=== PATIENT | male | born 1980 | race Two or more races ===

== ENCOUNTER 2016-10-08 11:19 | Inpatient (IN) | payer MEDICAID ==
[~2016-10-08] VITALS: Ht 177.8 cm; Wt 114.3 kg
[2016-10-08] MEDS ORDERED: SODIUM CHLORIDE 0.9% 1,000 ML IV ONE (11:49)
[2016-10-08] MEDS ORDERED: InsuLIN REG 1unit/0.01ml Soln (100units/ml) IV ONE (12:00)
[2016-10-08 12:12] LABS: Base Excess -0.8 mmol/L (-2.0-2.0); Blood 02Sat 92.5 % (96-100); Blood COHb 0.3 % (0.5-1.5); Blood MetHb 0.3 % (0.0-1.5); HCO3 22.9 mmol/L (22-26.0); HHb 7.5 % (0.0-5.0); MODE ROOM AIR; O2Hb 91.9 % (94.0-97.0); PCO2 35.5 mmHg (35.0-45.0); PCO2(T) 35.5 mmHg (35.0-45.0); PO2 66.5 mmHg (80.0-100.0); PO2(T) 66.5 mmHg (80.0-100.0); Sample Type Arterial; pH 7.427 (7.350-7.450)
[2016-10-08 12:46] LABS: Urine Bilirubin Negative (Negative); Urine Blood Negative /uL (Negative); Urine Color Yellow (Yellow); Urine Glucose 4+ mg/dL (Normal); Urine Ketone 1+ (Negative); Urine Nitrite Negative (Negative); Urine RBC 2 /hpf (0 - 3); Urine Urobilinogen Normal (Negative)
[2016-10-08] MEDS ORDERED: ONDANSETRON HCL 4 MG/2 ML VIAL IV ONE (13:15)
[2016-10-08] MEDS ORDERED: MORPHINE SULFATE 4 MG/ML SYRG IV ONE (13:15)
[2016-10-08 13:24] LABS: Basophils # (auto) 0 uL; Basophils % (auto) 0.3 % (0.0-2.0); Eosinophils # (auto) 0.2 uL; Eosinophils % (auto) 2.4 % (0.0-7.0); Hematocrit 50.2 % (41.0-53.0); Hemoglobin 17.1 g/dL (13.5-17.5); Lymphocytes # (auto) 1.7 uL; Lymphocytes % (auto) 21.9 % (10.0-50.0); Mean Corpuscular Hemoglobin 28.7 pg (28.0-32.0); Mean Corpuscular Hgb Conc. 34.1 g/dL (32.0-36.0); Mean Corpuscular Volume 84.1 fL (80.0-100.0); Monocytes # (auto) 0.5 uL; Monocytes % (auto) 6.7 % (0.0-12.0); Neutrophils # (auto) 5.3 uL; Neutrophils % (auto) 68.7 % (37.0-80.0); Platelet Count (auto) 195 10^3/uL (140-450); Red Cell Distribution Width 12.8 % (11.6-16.0); White Blood Cell 7.7 10^3/uL (4.4-10.8)
[2016-10-08 13:44] LABS: Albumin 4.4 g/dL (3.4-5.0); BUN/Creatinine Ratio 19.2; Bilirubin, Total 2.1 mg/dL (0.2-1.0); Calcium 9.3 mg/dL (8.5-10.1); Potassium 4.2 mmol/L (3.5-5.1); Total Protein 8.6 g/dL (6.4-8.2)
[2016-10-08] MEDS ORDERED: POTASSIUM CHLORIDE 8 MEQ TAB PO ONE (14:30)
[2016-10-08] MEDS ORDERED: metFORMIN HYDROCHLORIDE 500 MG TAB PO ONE (14:30)
[2016-10-08] MEDS ORDERED: HCTZ 25 MG TAB PO ONE (14:30)
[2016-10-08] MEDS ORDERED: ACETAMINOPHEN 325 MG TAB PO PRN (14:45)
[2016-10-08] MEDS ORDERED: DOCUSATE SOD 100 MG CAP PO PRN (14:45)
[2016-10-08] MEDS ORDERED: MORPHINE SULF INJ 2 MG/ML SYRINGE 1ML IV PRN (14:45)
[2016-10-08] MEDS ORDERED: DEXTROSE (50%) 50ML SYRG IV PRN (14:45)
[2016-10-08] MEDS ORDERED: InsuLIN REG 1unit/0.01ml Soln (100units/ml) SC ONE (14:45)
[2016-10-08] MEDS ORDERED: ONDANSETRON HCL 4 MG/2 ML VIAL IV PRN (14:45)
[2016-10-08] MEDS ORDERED: NITROGLYCERIN 0.4 MG SL TAB SL PRN (14:45)
[2016-10-08] MEDS: SODIUM CHLORIDE 0.9% 1,000 ML IV SCH (15:16)
[2016-10-08] MEDS: MULTIPLE VITAMIN TAB PO SCH (15:16)
[2016-10-08] MEDS: FAMOTIDINE 20 MG TAB PO SCH ×2 (15:16→21:13)
[2016-10-08 16:02] VITALS: BP 143/96
[2016-10-08] MEDS ORDERED: INFLUENZA QUAD 2016-2017 0.5 ML SYRG IM ONE (16:30)
[2016-10-08 17:00] VITALS: BP 143/96
[2016-10-08] MEDS: MORPHINE SULF INJ 2 MG/ML SYRINGE 1ML IV PRN ×2 (17:08→21:13)
[2016-10-08] MEDS: ACCU-CHEK COMFORT CURVE STRIP VI SCH ×2 (17:10→22:00)
[2016-10-08] MEDS: metFORMIN HYDROCHLORIDE 500 MG TAB PO SCH (17:35)
[2016-10-08] MEDS: InsuLIN REG 1unit/0.01ml Soln (100units/ml) SC SCH ×2 (17:36→22:00)
[2016-10-08] MEDS: TEMAZEPAM 15 MG CAP PO PRN (21:13)
[2016-10-08 23:09] VITALS: BP 145/74
[2016-10-09 05:48] VITALS: BP 138/80
[2016-10-09 05:58] LABS: Basophils # (auto) 0 uL; Basophils % (auto) 0.4 % (0.0-2.0); Eosinophils # (auto) 0.2 uL; Eosinophils % (auto) 3.7 % (0.0-7.0); Hematocrit 41.9 % (41.0-53.0); Hemoglobin 14.3 g/dL (13.5-17.5); Lymphocytes # (auto) 1.6 uL; Lymphocytes % (auto) 25.7 % (10.0-50.0); Mean Corpuscular Hemoglobin 28.7 pg (28.0-32.0); Mean Corpuscular Hgb Conc. 34.2 g/dL (32.0-36.0); Mean Platelet Volume 8.7 fL (7.4-10.4); Monocytes # (auto) 0.5 uL; Monocytes % (auto) 7.7 % (0.0-12.0); Neutrophils # (auto) 3.9 uL; Neutrophils % (auto) 62.5 % (37.0-80.0); Platelet Count (auto) 189 10^3/uL (140-450); Red Cell Distribution Width 12.8 % (11.6-16.0); White Blood Cell 6.3 10^3/uL (4.4-10.8)
[2016-10-09] MEDS: InsuLIN REG 1unit/0.01ml Soln (100units/ml) SC SCH ×4 (06:00→21:26)
[2016-10-09] MEDS: MORPHINE SULF INJ 2 MG/ML SYRINGE 1ML IV PRN ×4 (06:15→19:50)
[2016-10-09 06:16] LABS: Albumin 3.2 g/dL (3.4-5.0); BUN/Creatinine Ratio 12.6; Calcium 7.9 mg/dL (8.5-10.1); Potassium 4.2 mmol/L (3.5-5.1)
[2016-10-09 06:25] LABS: Bilirubin, Total 1.4 mg/dL (0.2-1.0); Total Protein 6.9 g/dL (6.4-8.2)
[2016-10-09] MEDS: metFORMIN HYDROCHLORIDE 500 MG TAB PO SCH ×2 (06:27→18:33)
[2016-10-09] MEDS: SODIUM CHLORIDE 0.9% 1,000 ML IV SCH ×3 (07:08→22:14)
[2016-10-09] MEDS: ACCU-CHEK COMFORT CURVE STRIP VI SCH ×4 (07:08→21:26)
[2016-10-09 08:00] VITALS: BP 151/84
[2016-10-09 09:00] VITALS: BP 143/74
[2016-10-09] MEDS: FAMOTIDINE 20 MG TAB PO SCH ×2 (10:28→21:25)
[2016-10-09] MEDS: MULTIPLE VITAMIN TAB PO SCH (10:28)
[2016-10-09] MEDS: POTASSIUM CHLORIDE 8 MEQ TAB PO SCH (10:28)
[2016-10-09] MEDS: HCTZ 25 MG TAB PO SCH (10:28)
[2016-10-09] MEDS: HYDROcodone-ACET 5/325MG TAB PO PRN (10:35)
[2016-10-09 13:00] VITALS: BP 134/87
[2016-10-09 13:51] LABS: Amylase 39 U/L (25-115)
[2016-10-09 17:00] VITALS: BP 137/72
[2016-10-09] MEDS: glipiZIDE 5 MG TAB PO SCH (18:33)
[2016-10-09] MEDS: TEMAZEPAM 15 MG CAP PO PRN (21:25)
[2016-10-09 22:00] VITALS: BP 146/84
[2016-10-10 05:00] VITALS: BP 156/80
[2016-10-10] MEDS: ACCU-CHEK COMFORT CURVE STRIP VI SCH ×4 (06:16→21:50)
[2016-10-10] MEDS: SODIUM CHLORIDE 0.9% 1,000 ML IV SCH ×2 (06:16→15:30)
[2016-10-10] MEDS: InsuLIN REG 1unit/0.01ml Soln (100units/ml) SC SCH ×4 (06:16→21:51)
[2016-10-10] MEDS: MORPHINE SULF INJ 2 MG/ML SYRINGE 1ML IV PRN ×4 (06:17→20:46)
[2016-10-10] MEDS: metFORMIN HYDROCHLORIDE 500 MG TAB PO SCH ×2 (06:17→17:58)
[2016-10-10] MEDS: glipiZIDE 5 MG TAB PO SCH ×2 (06:17→17:58)
[2016-10-10 07:44] VITALS: BP 144/85
[2016-10-10 08:00] VITALS: BP 144/85
[2016-10-10] MEDS: MULTIPLE VITAMIN TAB PO SCH (09:31)
[2016-10-10] MEDS: POTASSIUM CHLORIDE 8 MEQ TAB PO SCH (09:31)
[2016-10-10] MEDS: HCTZ 25 MG TAB PO SCH (09:31)
[2016-10-10] MEDS: FAMOTIDINE 20 MG TAB PO SCH ×2 (09:32→21:50)
[2016-10-10 12:00] VITALS: BP 127/82
[2016-10-10 14:55] LABS: Basophils # (auto) 0 uL; Basophils % (auto) 0.4 % (0.0-2.0); Eosinophils # (auto) 0.2 uL; Eosinophils % (auto) 3.9 % (0.0-7.0); Hematocrit 44.4 % (41.0-53.0); Hemoglobin 15.5 g/dL (13.5-17.5); Lymphocytes # (auto) 1.5 uL; Lymphocytes % (auto) 26.4 % (10.0-50.0); Mean Corpuscular Hemoglobin 29.2 pg (28.0-32.0); Mean Corpuscular Hgb Conc. 34.9 g/dL (32.0-36.0); Mean Corpuscular Volume 83.6 fL (80.0-100.0); Mean Platelet Volume 8.9 fL (7.4-10.4); Monocytes # (auto) 0.4 uL; Monocytes % (auto) 6.8 % (0.0-12.0); Neutrophils # (auto) 3.5 uL; Neutrophils % (auto) 62.5 % (37.0-80.0); Platelet Count (auto) 204 10^3/uL (140-450); White Blood Cell 5.6 10^3/uL (4.4-10.8)
[2016-10-10 15:22] LABS: BUN/Creatinine Ratio 11.3; Calcium 8.6 mg/dL (8.5-10.1); Potassium 3.9 mmol/L (3.5-5.1)
[2016-10-10 16:15] LABS: Albumin 3.3 g/dL (3.4-5.0); Bilirubin, Direct 0.2 mg/dL (0-0.2); Bilirubin, Total 1.3 mg/dL (0.2-1.0)
[2016-10-10 16:46] VITALS: BP 141/91
[2016-10-10] MEDS: TEMAZEPAM 15 MG CAP PO PRN (21:56)
[2016-10-10 22:00] VITALS: BP 136/86
[2016-10-10] MEDS ORDERED: INSULIN DETEMIR(LEVEMIR) 1unit/0.01ml Soln (100units/ml) SC SCH (22:00)
[2016-10-11] MEDS: SODIUM CHLORIDE 0.9% 1,000 ML IV SCH ×3 (02:06→14:34)
[2016-10-11] MEDS: MORPHINE SULF INJ 2 MG/ML SYRINGE 1ML IV PRN ×2 (02:12→06:35)
[2016-10-11 05:00] VITALS: BP 125/82
[2016-10-11 06:31] LABS: Basophils # (auto) 0 uL; Basophils % (auto) 0.4 % (0.0-2.0); Eosinophils # (auto) 0.3 uL; Eosinophils % (auto) 4.9 % (0.0-7.0); Hematocrit 43.8 % (41.0-53.0); Hemoglobin 15.1 g/dL (13.5-17.5); Lymphocytes # (auto) 1.9 uL; Lymphocytes % (auto) 32.6 % (10.0-50.0); Mean Corpuscular Hemoglobin 28.8 pg (28.0-32.0); Mean Corpuscular Hgb Conc. 34.4 g/dL (32.0-36.0); Mean Corpuscular Volume 83.9 fL (80.0-100.0); Mean Platelet Volume 9.4 fL (7.4-10.4); Monocytes # (auto) 0.5 uL; Monocytes % (auto) 8.4 % (0.0-12.0); Neutrophils # (auto) 3.1 uL; Neutrophils % (auto) 53.7 % (37.0-80.0); Platelet Count (auto) 199 10^3/uL (140-450); Red Cell Distribution Width 13.4 % (11.6-16.0); White Blood Cell 5.8 10^3/uL (4.4-10.8)
[2016-10-11] MEDS: glipiZIDE 5 MG TAB PO SCH (06:34)
[2016-10-11] MEDS: metFORMIN HYDROCHLORIDE 500 MG TAB PO SCH ×2 (06:34→17:36)
[2016-10-11] MEDS: ACCU-CHEK COMFORT CURVE STRIP VI SCH ×4 (06:35→21:27)
[2016-10-11] MEDS: InsuLIN REG 1unit/0.01ml Soln (100units/ml) SC SCH ×4 (06:35→21:28)
[2016-10-11 06:49] LABS: Calcium 8.4 mg/dL (8.5-10.1); Potassium 3.9 mmol/L (3.5-5.1)
[2016-10-11 06:52] LABS: BUN/Creatinine Ratio 10.9
[2016-10-11 09:30] VITALS: BP 131/74
[2016-10-11] MEDS: FAMOTIDINE 20 MG TAB PO SCH ×2 (09:37→21:27)
[2016-10-11] MEDS: POTASSIUM CHLORIDE 8 MEQ TAB PO SCH (09:37)
[2016-10-11] MEDS: HCTZ 25 MG TAB PO SCH (09:37)
[2016-10-11] MEDS: MULTIPLE VITAMIN TAB PO SCH (09:37)
[2016-10-11 14:27] VITALS: BP 128/79
[2016-10-11] MEDS: HYDROcodone-ACET 5/325MG TAB PO PRN ×2 (15:21→20:58)
[2016-10-11 18:05] VITALS: BP 131/68
[2016-10-11] MEDS: TEMAZEPAM 15 MG CAP PO PRN (21:27)
[2016-10-11 22:00] VITALS: BP 154/96
[2016-10-11] MEDS ORDERED: INSULIN DETEMIR(LEVEMIR) 1unit/0.01ml Soln (100units/ml) SC SCH (22:00)
[2016-10-12] MEDS: SODIUM CHLORIDE 0.9% 1,000 ML IV SCH (03:08)
[2016-10-12 05:00] VITALS: BP 140/75
[2016-10-12 06:11] LABS: Basophils # (auto) 0 uL; Basophils % (auto) 0.5 % (0.0-2.0); Eosinophils # (auto) 0.2 uL; Eosinophils % (auto) 3.7 % (0.0-7.0); Hematocrit 46.6 % (41.0-53.0); Hemoglobin 15.9 g/dL (13.5-17.5); Lymphocytes # (auto) 1.9 uL; Mean Corpuscular Hemoglobin 28.5 pg (28.0-32.0); Mean Corpuscular Hgb Conc. 34.1 g/dL (32.0-36.0); Mean Corpuscular Volume 83.7 fL (80.0-100.0); Monocytes # (auto) 0.6 uL; Neutrophils # (auto) 3.4 uL; Neutrophils % (auto) 54.8 % (37.0-80.0); Platelet Count (auto) 218 10^3/uL (140-450); Red Cell Distribution Width 13.1 % (11.6-16.0); White Blood Cell 6.1 10^3/uL (4.4-10.8)
[2016-10-12] MEDS: ACCU-CHEK COMFORT CURVE STRIP VI SCH ×2 (06:17→11:59)
[2016-10-12 06:32] LABS: BUN/Creatinine Ratio 12.2; Calcium 8.8 mg/dL (8.5-10.1)
[2016-10-12] MEDS: HYDROcodone-ACET 5/325MG TAB PO PRN (06:32)
[2016-10-12] MEDS: InsuLIN REG 1unit/0.01ml Soln (100units/ml) SC SCH ×2 (06:32→12:09)
[2016-10-12] MEDS: metFORMIN HYDROCHLORIDE 500 MG TAB PO SCH (06:32)
[2016-10-12 09:30] VITALS: BP 131/86
[2016-10-12] MEDS: MULTIPLE VITAMIN TAB PO SCH (10:15)
[2016-10-12] MEDS: FAMOTIDINE 20 MG TAB PO SCH (10:15)
[2016-10-12] MEDS: POTASSIUM CHLORIDE 8 MEQ TAB PO SCH (10:15)
[2016-10-12] MEDS: HCTZ 25 MG TAB PO SCH (10:16)
[2016-10-12] MEDS ORDERED: LEVEMIR SC (12:10)
[2016-10-12] MEDS ORDERED: HCTZ25T PO (12:10)
[2016-10-12] MEDS ORDERED: METF500T PO (12:10)
[2016-10-12 13:07] VITALS: BP 130/86
== END 2016-10-12 13:20 | disposition home or self-care (01) | DRG 468 ==
LOC: ER 11:19 → TELE 11:20 → EAST 15:39 → TELE-EAST 10-09 02:24 → EAST 10-10 16:46
PROVIDERS: ADMIT Internal Medicine; ATTEND Nurse Practitioner Acute Care
DX: I12.9 Hypertensive chronic kidney disease with stage 1 through stage 4 chronic kidney disease, or unspecified chronic kidney disease (principal); E11.21 Type 2 diabetes mellitus with diabetic nephropathy; E87.8 Other disorders of electrolyte and fluid balance, not elsewhere classified; E11.65 Type 2 diabetes mellitus with hyperglycemia; E87.1 Hypo-osmolality and hyponatremia; N18.2 Chronic kidney disease, stage 2 (mild); E86.0 Dehydration; E11.319 Type 2 diabetes mellitus with unspecified diabetic retinopathy without macular edema; R16.0 Hepatomegaly, not elsewhere classified; E11.22 Type 2 diabetes mellitus with diabetic chronic kidney disease; K76.0 Fatty (change of) liver, not elsewhere classified; Z83.3 Family history of diabetes mellitus; Z90.49 Acquired absence of other specified parts of digestive tract; Z23 Encounter for immunization
CPT/HCPCS: 36415; 36600; 71010; 74176; 80048; 80053; 80076; 81001; 82010; 82150; 82805; 82962; 83036; 83690; 83735; 85025; 94761; 96361; 96374; 96375; J1815; J2405

== ENCOUNTER 2017-09-26 05:01 | Emergency (ER) | payer MEDICAID ==
[~2017-09-26] VITALS: Ht 177.8 cm; Wt 104.3 kg
[~2017-09-26 05:01] MED LIST: HCTZ25T PO; LEVEMIR SC; METF500T PO
[2017-09-26 06:15] VITALS: BP 134/101
[2017-09-26] MEDS ORDERED: TETRACAINE HCL 0.5% OPTH(EYE) SOLN 4ML LEFTEYE ONE ×2 (06:30→07:45)
[2017-09-26] MEDS ORDERED: TETRACAINE HCL 0.5% OPTH(EYE) SOLN 4ML ONE (07:37)
[2017-09-26] MEDS ORDERED: IBUPROFEN 800 MG TAB PO ONE (09:00)
== END 2017-09-26 09:18 | disposition home or self-care (01) ==
LOC: ER 05:02
DX: H10.32 Unspecified acute conjunctivitis, left eye (principal); E11.9 Type 2 diabetes mellitus without complications; I10 Essential (primary) hypertension; Z90.49 Acquired absence of other specified parts of digestive tract
CPT/HCPCS: 70480; 82962

== ENCOUNTER 2017-12-17 12:34 | Emergency (ER) | payer MEDICAID ==
[~2017-12-17] VITALS: Ht 177.8 cm; Wt 111.1 kg
[2017-12-17 15:28] VITALS: BP 111/79
[2017-12-17 15:40] LABS: Basophils # (auto) 0 uL; Basophils % (auto) 0.6 % (0.0-2.0); Eosinophils # (auto) 0.2 uL; Eosinophils % (auto) 2.1 % (0.0-7.0); Hematocrit 47.5 % (41.0-53.0); Hemoglobin 16.7 g/dL (13.5-17.5); Lymphocytes # (auto) 1.6 uL; Lymphocytes % (auto) 20.4 % (10.0-50.0); Mean Corpuscular Hemoglobin 29.9 pg (28.0-32.0); Mean Corpuscular Hgb Conc. 35.2 g/dL (32.0-36.0); Mean Corpuscular Volume 84.9 fL (80.0-100.0); Monocytes # (auto) 0.6 uL; Monocytes % (auto) 7.3 % (0.0-12.0); Neutrophils # (auto) 5.6 uL; Neutrophils % (auto) 69.6 % (37.0-80.0); Nucleated Red Blood Cells % 0.1 %; Platelet Count (auto) 206 10^3/uL (140-450); Red Blood Cells 5.59 10^6/uL (4.5-5.90); Red Cell Distribution Width 13.1 % (11.8-14.3); White Blood Cell 8.1 10^3/uL (4.4-10.8)
[2017-12-17] MEDS ORDERED: LORazepam 2MG/ML-1ML VIAL IM ONE (15:45)
[2017-12-17] MEDS ORDERED: METOPROLOL TARTRATE 50 MG TAB PO ONE (15:45)
[2017-12-17 16:05] LABS: Albumin 4.3 g/dL (3.4-5.0); BUN/Creatinine Ratio 12.1; Calcium 9.7 mg/dL (8.5-10.1)
[2017-12-17 16:38] LABS: Potassium 4.2 mmol/L (3.5-5.1)
[2017-12-17 16:39] LABS: Total Protein 8.6 g/dL (6.4-8.2)
== END 2017-12-17 16:55 | disposition home or self-care (01) ==
LOC: ER 12:34
DX: E11.65 Type 2 diabetes mellitus with hyperglycemia (principal); I10 Essential (primary) hypertension; F41.9 Anxiety disorder, unspecified; Z90.49 Acquired absence of other specified parts of digestive tract; Z79.4 Long term (current) use of insulin
CPT/HCPCS: 36415; 80053; 82962; 85025; 93005; 96372; 99285; J2060

== ENCOUNTER 2019-01-25 11:32 | Emergency (ER) | payer MEDICAID ==
[~2019-01-25] VITALS: Ht 177.8 cm; Wt 104.3 kg
[~2019-01-25 11:32] MED LIST changes: +AML5T PO; +CIPR-173 PO; +FENO1TAB42 PO; -HCTZ25T PO
[2019-01-25] MEDS ORDERED: SODIUM CHLORIDE 0.9% 1,000 ML IV ONE (13:57)
[2019-01-25] MEDS ORDERED: ONDANSETRON HCL 4 MG/2 ML VIAL IV ONE (14:00)
[2019-01-25 14:13] LABS: Basophils # (auto) 0.1 uL; Basophils % (auto) 0.6 % (0.0-2.0); Eosinophils # (auto) 0.2 uL; Eosinophils % (auto) 1.9 % (0.0-7.0); Hematocrit 49.4 % (41.0-53.0); Hemoglobin 17.2 g/dL (13.5-17.5); Lymphocytes # (auto) 1.8 uL; Lymphocytes % (auto) 21.2 % (10.0-50.0); Mean Corpuscular Hemoglobin 28.8 pg (28.0-32.0); Mean Corpuscular Hgb Conc. 34.8 g/dL (32.0-36.0); Mean Corpuscular Volume 82.9 fL (80.0-100.0); Monocytes # (auto) 0.6 uL; Monocytes % (auto) 7.6 % (0.0-12.0); Neutrophils # (auto) 5.8 uL; Neutrophils % (auto) 68.7 % (37.0-80.0); Nucleated Red Blood Cells % 0.4 %; Platelet Count (auto) 214 10^3/uL (140-450); Red Blood Cells 5.96 10^6/uL (4.5-5.90); White Blood Cell 8.4 10^3/uL (4.4-10.8)
[2019-01-25] MEDS ORDERED: InsuLIN REG 1unit/0.01ml Soln (100units/ml) IV ONE (14:15)
[2019-01-25 14:23] LABS: Urine Bacteria NONE SEEN /hpf (None Seen); Urine Blood Negative /uL (Negative); Urine Specific Gravity 1.039 (1.001-1.035); Urine WBC 1 /hpf (0 - 3)
[2019-01-25 14:28] LABS: Albumin 4.3 g/dL (3.4-5.0); BUN/Creatinine Ratio 10.5; Calcium 9.6 mg/dL (8.5-10.1); Potassium 3.8 mmol/L (3.5-5.1)
[2019-01-25 14:31] LABS: Total Protein 8.3 g/dL (6.4-8.2)
[2019-01-25] MEDS ORDERED: MORPHINE SULFATE 4 MG/ML SYR/VIAL IV ONE (14:45)
[2019-01-25 15:56] VITALS: BP 138/97
== END 2019-01-25 16:55 | disposition home or self-care (01) ==
LOC: ER 11:35
DX: E11.65 Type 2 diabetes mellitus with hyperglycemia (principal); E78.5 Hyperlipidemia, unspecified; I10 Essential (primary) hypertension; R07.9 Chest pain, unspecified; F12.90 Cannabis use, unspecified, uncomplicated; Z79.899 Other long term (current) drug therapy; Z79.4 Long term (current) use of insulin; Z90.49 Acquired absence of other specified parts of digestive tract
CPT/HCPCS: 36415; 71045; 80053; 81001; 82962; 85025; 93005; 94761; 96361; 96374; 96375; 99284; J1815; J2270; J2405; J7030

== ENCOUNTER 2019-03-24 08:52 | Emergency (ER) | payer MEDICAID ==
[~2019-03-24] VITALS: Ht 177.8 cm; Wt 104.3 kg
[2019-03-24 10:59] VITALS: BP 114/62
[2019-03-24] MEDS ORDERED: SODIUM CHLORIDE 0.9% 1,000 ML IV ONE (11:09)
[2019-03-24] MEDS ORDERED: PROCHLORPERAZINE EDISYLATE 5 MG/ML 2ML VIAL IV ONE (11:15)
[2019-03-24 11:33] LABS: Basophils # (auto) 0 uL; Basophils % (auto) 0.3 % (0.0-2.0); Eosinophils # (auto) 0.1 uL; Eosinophils % (auto) 3.4 % (0.0-7.0); Hematocrit 42.9 % (41.0-53.0); Hemoglobin 14.8 g/dL (13.5-17.5); Lymphocytes # (auto) 0.5 uL; Lymphocytes % (auto) 12.1 % (10.0-50.0); Mean Corpuscular Hemoglobin 28.7 pg (28.0-32.0); Mean Corpuscular Hgb Conc. 34.5 g/dL (32.0-36.0); Mean Corpuscular Volume 83.3 fL (80.0-100.0); Monocytes # (auto) 0.5 uL; Monocytes % (auto) 12.3 % (0.0-12.0); Neutrophils # (auto) 2.8 uL; Neutrophils % (auto) 71.9 % (37.0-80.0); Nucleated Red Blood Cells % 0.1 %; Platelet Count (auto) 126 10^3/uL (140-450); Red Blood Cells 5.16 10^6/uL (4.5-5.90); Red Cell Distribution Width 13.8 % (11.8-14.3); White Blood Cell 3.9 10^3/uL (4.4-10.8)
[2019-03-24 11:37] LABS: Albumin 3.7 g/dL (3.4-5.0); Calcium 8.5 mg/dL (8.5-10.1); Magnesium 2.3 mg/dL (1.6-2.6); Potassium 3.9 mmol/L (3.5-5.1)
[2019-03-24 11:40] LABS: Urine Bacteria NONE SEEN /hpf (None Seen); Urine Blood Negative /uL (Negative); Urine Specific Gravity 1.029 (1.001-1.035); Urine WBC 4 /hpf (0 - 3)
[2019-03-24 11:41] LABS: BUN/Creatinine Ratio 11.6; Bilirubin, Total 2.3 mg/dL (0.2-1.0); Total Protein 7.3 g/dL (6.4-8.2)
== END 2019-03-24 13:20 | disposition left against medical advice (07) ==
LOC: ER 08:54
DX: N39.0 Urinary tract infection, site not specified (principal); F12.188 Cannabis abuse with other cannabis-induced disorder; E11.65 Type 2 diabetes mellitus with hyperglycemia; E78.5 Hyperlipidemia, unspecified; I10 Essential (primary) hypertension; Z90.49 Acquired absence of other specified parts of digestive tract; Z79.4 Long term (current) use of insulin; Z79.899 Other long term (current) drug therapy
CPT/HCPCS: 36415; 80053; 81001; 82962; 83735; 85025; 96361; 96374; 99283; J0780; J7030

== ENCOUNTER 2022-10-22 15:15 | Emergency (ER) | payer MEDICAID ==
[~2022-10-22] VITALS: Ht 177.8 cm; Wt 84.7 kg
[~2022-10-22 15:15] MED LIST changes: +FENO145T27 PO; -FENO1TAB42 PO
[2022-10-22 18:28] LABS: Basophils # (auto) 0 10 ^3/uL (0-0.2); Basophils % (auto) 0.7 % (0.0-2.0); Eosinophils # (auto) 0.2 10 ^3/uL (0-0.8); Eosinophils % (auto) 2.9 % (0.0-7.0); Hematocrit 45.1 % (41.0-53.0); Hemoglobin 15.7 g/dL (13.5-17.5); Lymphocytes # (auto) 2.1 10 ^3/uL (0.4-5.4); Lymphocytes % (auto) 29.7 % (10.0-50.0); Mean Corpuscular Hemoglobin 30.1 pg (28.0-32.0); Mean Corpuscular Hgb Conc. 34.8 g/dL (32.0-36.0); Mean Corpuscular Volume 86.2 fL (80.0-100.0); Monocytes # (auto) 0.6 10 ^3/uL (0-1.3); Monocytes % (auto) 8.4 % (0.0-12.0); Neutrophils # (auto) 4.2 10 ^3/uL (1.6-8.6); Neutrophils % (auto) 58.3 % (37.0-80.0); Nucleated Red Blood Cells % 0.2 %; Red Blood Cells 5.23 10^6/uL (4.5-5.90); Red Cell Distribution Width 12.8 % (11.8-14.3); White Blood Cell 7.2 10^3/uL (4.4-10.8)
[2022-10-22 18:36] LABS: Albumin 3.7 g/dL (3.4-5.0); BUN/Creatinine Ratio 10.4 (10.0-20.0); Calcium 8.5 mg/dL (8.5-10.1); Potassium 4.1 mmol/L (3.5-5.1)
[2022-10-22 18:49] LABS: CRP High Sensitivity 0.04 mg/dL (< 0.3)
[2022-10-22 19:53] LABS: Bilirubin, Total 1.7 mg/dL (0.2-1.0); Total Protein 7.2 g/dL (6.4-8.2)
[2022-10-22] MEDS ORDERED: HYDROcodone-ACET 5/325MG TAB PO ONE (21:15)
[2022-10-22 21:39] VITALS: BP 135/79
[2022-10-22] MEDS ORDERED: HYDR1TAB97 PO (22:48)
[2022-10-22] MEDS ORDERED: CLIN300C70 PO (22:48)
== END 2022-10-23 00:57 | disposition home or self-care (01) ==
LOC: ER 15:22
DX: M79.672 Pain in left foot (principal); M79.671 Pain in right foot; E11.65 Type 2 diabetes mellitus with hyperglycemia; E11.40 Type 2 diabetes mellitus with diabetic neuropathy, unspecified; F12.10 Cannabis abuse, uncomplicated; F41.9 Anxiety disorder, unspecified; E78.5 Hyperlipidemia, unspecified; I10 Essential (primary) hypertension; Z90.49 Acquired absence of other specified parts of digestive tract
CPT/HCPCS: 36415; 73630; 80053; 82550; 83605; 85025; 85652; 86141

== ENCOUNTER 2023-02-16 17:15 | Emergency (ER) | payer MEDICAID ==
[~2023-02-16] VITALS: Ht 177.8 cm; Wt 88.3 kg
[~2023-02-16 17:15] MED LIST changes: +CLIN300C70 PO; +HYDR1TAB97 PO
[2023-02-16] MEDS ORDERED: SODIUM CHLORIDE 0.9% 1,000 ML IVB ONE (17:45)
[2023-02-16 17:51] VITALS: PULSE 116; RESP 16; TEMP 98.6; O2SAT 99
[2023-02-16 18:29] LABS: Alanine Aminotransferase 21 U/L (7-40); Albumin 5.5 g/dL (3.2-4.8); Alkaline Phosphatase 119 U/L (46-116); Anion Gap 14 (5-15); Aspartate Aminotransferase 14 U/L (13-40); BUN/Creatinine Ratio 9.6 (10.0-20.0); Bilirubin, Total 4.7 mg/dL (0.2-1.0); Blood Urea Nitrogen 9 mg/dL (9-23); Calcium 11.1 mg/dL (8.7-10.4); Carbon Dioxide 21 mmol/L (20-30); Chloride 99 mmol/L (98-107); Glucose 229 mg/dL (74-106); Lipase 33 U/L (12-53); Potassium 3.8 mmol/L (3.5-5.1); Sodium 134 mmol/L (136-145); Total Protein 8.6 g/dL (5.7-8.2)
[2023-02-16 18:32] LABS: Basophils # (auto) 0.1 10 ^3/uL (0-0.2); Basophils % (auto) 0.5 % (0.0-2.0); Hemoglobin 18.8 g/dL (13.5-17.5); Red Cell Distribution Width 13.2 % (11.8-14.3)
[2023-02-16 18:34] LABS: Eosinophils # (auto) 0 10 ^3/uL (0-0.8); Eosinophils % (auto) 0.3 % (0.0-7.0); Hematocrit 54.3 % (41.0-53.0); Lymphocytes # (auto) 3.5 10 ^3/uL (0.4-5.4); Lymphocytes % (auto) 24.8 % (10.0-50.0); Mean Corpuscular Hemoglobin 29.3 pg (28.0-32.0); Mean Corpuscular Hgb Conc. 34.6 g/dL (32.0-36.0); Mean Corpuscular Volume 84.7 fL (80.0-100.0); Monocytes # (auto) 1.1 10 ^3/uL (0-1.3); Monocytes % (auto) 7.9 % (0.0-12.0); Neutrophils # (auto) 9.3 10 ^3/uL (1.6-8.6); Neutrophils % (auto) 66.5 % (37.0-80.0); Red Blood Cells 6.41 10^6/uL (4.5-5.90)
[2023-02-16 18:51] LABS: INR 1.06 (0.9-1.15); Partial Thromboplastin Time 26.8 SEC (24.5-34.5); Prothrombin Time 11.1 sec (9.3-11.8)
[2023-02-16 18:57] LABS: Urine Bacteria FEW /hpf (None Seen); Urine Blood Negative /uL (Negative); Urine Clarity Clear (Clear); Urine Color Yellow (Yellow); Urine Hyaline Cast FEW /lpf (0 - 2); Urine Mucus FEW (None Seen); Urine Protein, UAD 1+ (Negative); Urine Specific Gravity 1.021 (1.001-1.035); Urine Urobilinogen Normal (Negative); Urine WBC 3 /hpf (0 - 3)
[2023-02-16 19:30] VITALS: PULSE 120; RESP 25; O2SAT 97
[2023-02-16] MEDS ORDERED: METOCLOPRAMIDE HCL 5MG/ml INJ 2ml VIAL IV ONE (19:30)
[2023-02-16] MEDS ORDERED: KETOROLAC TROMETH 30 MG/ML 1ML VIAL IV ONE (19:30)
[2023-02-16] MEDS ORDERED: HYDROmorphone HCL 2 MG/ML VL/or syr IV ONE (19:30)
[2023-02-16 20:00] VITALS: O2SAT 99
[2023-02-16 20:11] LABS: Amphetamine Screen, Urine Neg (NEGATIVE); Benzodiazephine Screen, Urine Neg (NEGATIVE)
[2023-02-16 20:12] LABS: Barbiturate Scree,Urine Neg (NEGATIVE); Cannabinoid Screen, Urine Pos (NEGATIVE); Cocaine Screen, Urine Neg (NEGATIVE); Opiate Scree,Urine Neg (NEGATIVE); Phencyclidine Screen, Urine Neg (NEGATIVE)
[2023-02-16 20:40] VITALS: BP 143/91; PULSE 96; RESP 20
[2023-02-16] MEDS ORDERED: LORazepam 2MG/ML-1ML VIAL IV ONE (22:30)
== END 2023-02-16 22:50 | disposition home or self-care (01) ==
LOC: ER 17:15
DX: K86.1 Other chronic pancreatitis (principal); R11.2 Nausea with vomiting, unspecified; F11.13 Opioid abuse with withdrawal; I10 Essential (primary) hypertension; E78.5 Hyperlipidemia, unspecified; E11.9 Type 2 diabetes mellitus without complications; Z90.49 Acquired absence of other specified parts of digestive tract; Z79.2 Long term (current) use of antibiotics; Z79.4 Long term (current) use of insulin; Z79.899 Other long term (current) drug therapy
CPT/HCPCS: 36415; 74022; 80053; 80307; 80320; 81001; 83690; 85025; 85610; 85730; 93005; 96361; 96374; 96375; 99285; J1170; J1885; J2060; J2765; J7030